=== PATIENT | female | born 1960 | race Caucasian/White ===

== ENCOUNTER 2017-08-10 12:06 | Observation (INO) | payer BC ==
--- NOTE | 2017-08-10 12:39 | ED ---
General Adult HPI - General Chief complaint: Neuro Symptoms/Deficit Stated complaint: Right Eye/Eyebrow drooping Time Seen by Provider: 08/10/17 12:24 Source: patient, family, RN notes reviewed Mode of arrival: ambulatory Limitations: no limitations - History of Present Illness Initial comments: Patient is a pleasant 57-year-old female presenting to the emergency department with concerns for right eyelid drooping. Onset of symptoms was just a couple hours ago. Patient has had approximately 3 episodes now. Episodes usually just lasts a couple of minutes. Patient states it is just the right eyelid, and maybe a little bit of the eyebrow. Patient states symptoms then resolved. Patient has not noticed any other facial weakness. Patient denies any headache. No other areas of weakness. No confusion or speech problems. No history of similar symptoms previously. - Related Data Home Medications Medication Instructions Recorded Confirmed Levothyroxine Sodium [Synthroid] 62.5 mcg PO TUTHSA 08/10/17 08/10/17 Levothyroxine Sodium [Synthroid] 75 mcg PO SUMOWEFR 08/10/17 08/10/17 Allergies Allergy/AdvReac Type Severity Reaction Status Date / Time azithromycin AdvReac Nausea Verified 08/10/17 12:44 [From Zithromax Z-Marin] metoclopramide [From Reglan] AdvReac Hallucinati Verified 08/10/17 12:44 ons Review of Systems ROS Statement: Those systems with pertinent positive or pertinent negative responses have been documented in the HPI. ROS Other: All systems not noted in ROS Statement are negative. Constitutional: Denies: fever Eyes: Denies: eye pain, vision change ENT: Denies: ear pain Respiratory: Denies: dyspnea Cardiovascular: Denies: chest pain Endocrine: Denies: fatigue Gastrointestinal: Denies: abdominal pain Genitourinary: Denies: dysuria Musculoskeletal: Denies: back pain Skin: Denies: rash Neurological: Denies: headache, numbness, paresthesias, confusion Past Medical History Past Medical History: Thyroid Disorder History of Any Multi-Drug Resistant Organisms: None Reported Past Surgical History: Cholecystectomy Past Psychological History: No Psychological Hx Reported Smoking Status: Former smoker Past Alcohol Use History: None Reported Past Drug Use History: None Reported General Exam Limitations: no limitations General appearance: alert, in no apparent distress Head exam: Present: atraumatic Eye exam: Present: normal appearance, PERRL, EOMI. Absent: nystagmus ENT exam: Present: normal oropharynx Neck exam: Present: normal inspection Respiratory exam: Present: normal lung sounds bilaterally Cardiovascular Exam: Present: regular rate, normal rhythm Expanded Peripheral pulses: 2+: Radial (R), Radial (L) GI/Abdominal exam: Present: soft. Absent: tenderness Extremities exam: Present: normal inspection Neurological exam: Present: alert, oriented X3, CN II-XII intact. Absent: motor sensory deficit Expanded Neurological exam: Present: protecting the airway Speech: Present: fluid speech Cranial nerves: EOM's Intact: Normal, Facial Sensation: Normal Cerebellar function: Finger to Nose: Normal Sensory exam: Upper Extremity Light Touch: Normal, Lower Extremity Light Touch: Normal Motor strength exam: RUE: 5, LUE: 5, RLE: 5, LLE: 5 Eye Response: (4) open spontaneously Motor Response: (6) obeys commands Verbal Response: (5) oriented Psychiatric exam: Present: normal affect, normal mood Skin exam: Present: normal color Course Vital Signs 08/10/17 08/10/17 12:11 14:32 Temperature 98.9 F Pulse Rate 74 70 Respiratory 18 18 Rate Blood Pressure 175/86 173/81 O2 Sat by Pulse 96 99 Oximetry Medical Decision Making - Medical Decision Making Patient reevaluated and resting comfortably in bed. Patient and family updated on results and plan. Case was discussed in detail with practitioner Jorge, who will admit for Dr. Sawyer, covering for Dr. Dia. Cause of symptoms is not known completely at this time. There is concern for possible TIA. Exclude also be possible early myasthenia gravis or other. Patient is felt to be best benefited by neurology consultation. - Radiology Data Radiology results: report reviewed (Computed tomography scan of the brain reveals no acute process) Disposition Clinical Impression: Transient cerebral ischemia Disposition: ADMITTED IP TO THIS [facility] Referrals: Brenda Dia MD [Primary Care Provider] - 1-2 days Decision Time: 14:40
--- NOTE | 2017-08-10 13:08 | CT ---
EXAMINATION TYPE: CT brain wo con DATE OF EXAM: 08/10/2017 COMPARISON: NONE HISTORY: Rt eye drooping CT DLP: 1054.2 mGycm. Automated Exposure Control for Dose Reduction was Utilized. TECHNIQUE: CT scan of the head is performed without contrast. FINDINGS: There is no acute intracranial hemorrhage, mass effect, or midline shift identified. No s uspicious extra axial fluid collection. The ventricles and sulci are within normal limits in size. The globes are intact and the visualized sinuses are clear. Right-sided enrrique bullosa are noted. IMPRESSION: No acute intracranial hemorrhage, mass effect, or midline shift is seen. Considering the patient's symptoms MRI could be considered.
[2017-08-10] MEDS ORDERED: ASPIRIN 325 MG TAB PO STA (14:40)
[2017-08-10 15:39] LABS: HCT 41.6 % (34.0-46.0); HGB 14.5 gm/dL (11.4-16.0); MCH 29.9 pg (25.0-35.0); MCHC 34.9 g/dL (31.0-37.0); MCV 85.6 fL (80.0-100.0); Mean Platelet Volume 6.6; Platelet Count 287 k/uL (150-450); RBC 4.86 m/uL (3.80-5.40); RDW 12.4 % (11.5-15.5); WBC 7.6 k/uL (3.8-10.6)
--- NOTE | 2017-08-10 15:44 | US ---
EXAMINATION TYPE: US carotid duplex BILAT DATE OF EXAM: 08/10/2017 COMPARISON: NONE CLINICAL HISTORY: Stenosis. Right eyelid drooping EXAM MEASUREMENTS: RIGHT: Peak Systolic Velocity (PSV) cm/sec ----- Right CCA: 60.0 ----- Right ICA: 92.0 ----- Right ECA: 101.3 ICA/CCA ratio: 1.5 RIGHT: End Diastole cm/sec ----- Right CCA: 20.4 ----- Right ICA: 33.7 ----- Right ECA: 13.3 LEFT: Peak Systolic Velocity (PSV) cm/sec ----- Left CCA: 81.5 ----- Left ICA: 71.6 ----- Left ECA: 56.6 ICA/CCA ratio: 0.9 LEFT: End Diastole cm/sec ----- Left CCA: 19.3 ----- Left ICA: 27.5 ----- Left ECA: 7.1 VERTEBRALS (direction of flow): Right Vertebral: Antegrade Left Vertebral: Antegrade Rhythm: Normal No elevated velocities, no significant stenosis. IMPRESSION: No evidence for hemodynamically significant stenosis. Criteria for Assigning % of Stenosis / Diameter reduction (Estimation based on the indirect measurements of the internal carotid artery velocities (ICA PSV). 1. Normal (no stenosis)=ICA PSV < 125 cm/s: ratio < 2.0: ICA EDV<40 cm/s. 2. Less than 50% stenosis=ICA PSV < 125 cm/s: ratio < 2.0: ICA EDV<40 cm/s. 3. 50 to 69% stenosis=ICA PSV of 125 to 230 cm/s: ration 2.0 ? 4.0: ICA EDV 40-100 cm/s. 4. Greater than 70% stenosis to near occlusion= ICA PSV > 230 cm/s: ratio > 4.0: ICA EDV > 100 cm/s. 5. Near occlusion= ICA PSV velocities may be low or undetectable: variable ratio and ICA EDV. 6. Total occlusion=unable to detect flow.
[2017-08-10] MEDS: SODIUM CHLORIDE 0.9% 1,000 ML IV SCH (15:47)
[2017-08-10 15:54] LABS: ALT 57 U/L (9-52); AST 55 U/L (14-36); Albumin 4.6 g/dL (3.5-5.0); Alkaline Phosphatase 70 U/L (38-126); Anion Gap 12 mmol/L; Blood Urea Nitrogen 13 mg/dL (7-17); Calcium 10.2 mg/dL (8.4-10.2); Carbon Dioxide 25 mmol/L (22-30); Chloride 105 mmol/L (98-107); Glucose 99 mg/dL (74-99); Potassium 4.5 mmol/L (3.5-5.1); Sodium 142 mmol/L (137-145); Total Bilirubin 0.7 mg/dL (0.2-1.3); Total Protein 7.9 g/dL (6.3-8.2)
[2017-08-10 17:16] VITALS: RESP 18
[2017-08-10] MEDS ORDERED: TEMAZEPAM 15 MG CAP PO PRN (18:05)
[2017-08-10] MEDS ORDERED: LEVOTHYROXINE 75 MCG TAB PO SCH (18:15)
[2017-08-10] MEDS: HEPARIN SODIUM,PORCINE 5,000 UNIT/ML 1 ML VIAL SQ SCH (20:08)
--- NOTE | 2017-08-10 20:19 | ECHOF ---
Referral Reason:Thrombus MEASUREMENTS -------- HEIGHT: 160.0 cm WEIGHT: 76.2 kg BP: 173/81 RVIDd: 2.5 cm (< 3.3) IVSd: 1.1 cm (0.6 - 1.1) LVIDd: 4.0 cm (3.9 - 5.3) LVPWd: 1.2 cm (0.6 - 1.1) IVSs: 1.4 cm LVIDs: 2.8 cm LVPWs: 1.3 cm LAESV Index (A-L): 11.51 ml/m Ao Diam: 2.4 cm (2.0 - 3.7) AV Cusp: 1.6 cm (1.5 - 2.6) LA Diam: 2.9 cm (2.7 - 3.8) EPSS: 0.4 cm MV E Jerel: 0.78 m/s MV DecT: 311 ms MV A Jerel: 0.84 m/s MV E/A Ratio: 0.93 RAP: 5.00 mmHg RVSP: 8.73 mmHg MV EF SLOPE: 78.33 mm/s (70 - 150) MV EXCURSION: 1.49 cm (> 18.000) FINDINGS -------- Sinus rhythm. This was a technically adequate study. The left ventricular size is normal. There is borderline concentric left ventricular hypertrophy. Overall left ventricular systolic function is normal with, an EF between 55 - 60 %. The right ventricle is normal in size and function. Normal LA size by volume 22+/-6 ml/m2. The right atrium is normal in size. The aortic valve is trileaflet, and appears structurally normal. No aortic stenosis or regurgitation. The mitral valve leaflets are mildly thickened. There is trace to mild mitral regurgitation. Trace tricuspid regurgitation present. Right ventricular systolic pressure is normal at < 35 mmHg. There is no evidence of pulmonary hypertension. The pulmonic valve was not well visualized. The aortic root size is normal. Normal inferior vena cava with normal inspiratory collapse consistent with estimated right atrial pre ssure of 5 mmHg. Echo free space indicative of a pericardial fat pad. There is no pericardial effusion. CONCLUSIONS -------- 1. Sinus rhythm. 2. This was a technically adequate study. 3. The left ventricular size is normal. 4. There is borderline concentric left ventricular hypertrophy. 5. Overall left ventricular systolic function is normal with, an EF between 55 - 60 %. 6. Normal LA size by volume 22+/-6 ml/m2. 7. The aortic valve is trileaflet, and appears structurally normal. No aortic stenosis or regurgitati on. 8. The mitral valve leaflets are mildly thickened. 9. There is trace to mild mitral regurgitation. 10. Trace tricuspid regurgitation present. 11. Right ventricular systolic pressure is normal at < 35 mmHg. 12. There is no evidence of pulmonary hypertension. 13. The pulmonic valve was not well visualized. 14. The aortic root size is normal. 15. There is no pericardial effusion. PRODUCTION CONTROL COORDINATING CLERK: Axel Turner RDCS
[2017-08-10] MEDS ORDERED: MELATONIN 3 MG TABLET PO SCH (21:00)
[2017-08-11 00:46] LABS: Appearance,Urine Clear (Clear); Bilirubin,Urine Negative (Negative); Blood,Urine Negative (Negative); Color,Urine Yellow; Glucose,Urine (UA) Negative (Negative); Ketones,Urine Negative (Negative); Leukocyte Esterase,Urine Negative (Negative); Nitrite,Urine Negative (Negative); Protein,Urine Negative (Negative); Specific Gravity,Urine 1.015 (1.001-1.035); Urobilinogen,Urine <2.0 mg/dL (<2.0)
[2017-08-11] MEDS: SODIUM CHLORIDE 0.9% 1,000 ML IV SCH ×2 (01:39→18:07)
[2017-08-11 06:08] LABS: Basophils # (A) 0.1 k/uL (0-0.2); Basophils % (A) 1 %; Eosinophils # (A) 0.2 k/uL (0-0.7); Eosinophils % (A) 4 %; HCT 39.8 % (34.0-46.0); HGB 13.6 gm/dL (11.4-16.0); Lymphocytes # (A) 2.1 k/uL (1.0-4.8); Lymphocytes % (A) 35 %; MCH 29.6 pg (25.0-35.0); MCHC 34.1 g/dL (31.0-37.0); MCV 86.9 fL (80.0-100.0); Mean Platelet Volume 6.6; Monocytes # (A) 0.3 k/uL (0-1.0); Monocytes % (A) 5 %; Neutrophils # (A) 3.1 k/uL (1.3-7.7); Neutrophils % (A) 53 %; Platelet Count 247 k/uL (150-450); RBC 4.58 m/uL (3.80-5.40); RDW 12.6 % (11.5-15.5); WBC 5.9 k/uL (3.8-10.6)
[2017-08-11 06:19] LABS: ALT 54 U/L (9-52); AST 35 U/L (14-36); Albumin 3.8 g/dL (3.5-5.0); Alkaline Phosphatase 64 U/L (38-126); Anion Gap 9 mmol/L; Blood Urea Nitrogen 13 mg/dL (7-17); Calcium 9.3 mg/dL (8.4-10.2); Carbon Dioxide 27 mmol/L (22-30); Chloride 106 mmol/L (98-107); Cholesterol 248 mg/dL (<200); Glucose 101 mg/dL (74-99); HDL Cholesterol 45 mg/dL (40-60); LDL Cholesterol,Calculated 157 mg/dL (0-99); Potassium 4.1 mmol/L (3.5-5.1); Sodium 142 mmol/L (137-145); Total Bilirubin 0.5 mg/dL (0.2-1.3); Total Protein 6.6 g/dL (6.3-8.2); Triglycerides 231 mg/dL (<150)
[2017-08-11] MEDS ORDERED: LEVOTHYROXINE 25 MCG TAB PO SCH (06:30)
--- NOTE | 2017-08-11 07:26 | HP ---
HISTORY AND PHYSICAL CHIEF COMPLAINTS: Drooping of the right eyelid. HISTORY OF PRESENT ILLNESS: This 57-year-old woman with a past medical history of multiple medical problems including history of hypertension, hypothyroidism, history of Graves ophthalmopathy in remission, history of cholecystectomy being followed by Dr. Dia in the outpatient setting, is complaining of right eye drooping. The patient felt the right drooping periodically, lasting for 10 minutes about at least 3 episodes. There is no history any headache. No history of fever, rigors. No headache. No history of seizures. No history weakness. The patient came to [facility] and was admitted for further evaluation and treatment. The neurology consultation is underway. Initial CT scan of the brain showed no acute abnormality. MRI has been recommended and carotid Doppler was done which showed no evidence of any hemodynamic stenosis and 2D echo with Doppler showed ejection fraction 50-60%. There is no history of fever, rigors. No headache, loss of consciousness, seizures. PAST MEDICAL HISTORY: History of hypertension, hypothyroidism, history of Graves ophthalmopathy, cholecystectomy. MEDICATIONS: Prior to admission: Synthroid 75 mcg p.o. Sunday, Sunday, Sunday and 62.5 mg Sunday, and Sunday. ALLERGIES: ZITHROMAX and REGLAN. FAMILY HISTORY: History of cancer in the family. SOCIAL HISTORY: Previous history of smoking. No history of alcohol intake. REVIEW OF SYSTEMS: ENT: As mentioned earlier. CARDIOVASCULAR: No angina. RESPIRATORY: No cough. GI: No nausea. : No dysuria. NERVOUS SYSTEM: As mentioned earlier. ALLERGIES/IMMUNOLOGY: No asthma. MUSCULOSKELETAL: Degenerative joint disease. ENDOCRINE: As mentioned earlier. CONSTITUTIONAL: As mentioned earlier. DERMATOLOGY: Negative. RHEUMATOLOGY: Negative. PSYCHIATRY: As mentioned earlier. PHYSICAL EXAMINATION: Alert, oriented x3. Pulse 64, blood pressure is 135/67, respiration 18, temperature 97.1, pulse ox 98% on room air. HEENT: Conjunctivae normal. Oral mucosa moist. Neck is no jugular venous distention. No carotid bruit. No lymph node enlargement. CARDIOVASCULAR: S1, S2. RESPIRATORY: Breath sounds diminished in the bases. No rhonchi, no crackles. ABDOMEN: Soft, nontender. No mass palpable. LEGS: No edema. NERVOUS SYSTEM: Higher function as mentioned, normal. Cranial nerves 2 through 12 grossly intact. No facial deviation. No eye drooping at this time. Pupils are normal, eye movements in full direction. No nystagmus. Moves all 4 limbs. No focal motor or sensory deficits. No sensory cerebellar dysfunction. SKIN: No ulcer, rash, bleeding. LYMPHATIC: No lymphadenopathy in the neck, axillae, groin.. JOINTS: No active deforming arthropathy. LAB: CBC within normal limits. AST 55, ALT 57. ASSESSMENT: 1. Drooping of the right eye, possible transient ischemic attack. 2. Increased AST, ALT, possibly acute mild hepatitis. 3. Hypertension. 4. Hypothyroidism. 5. History of Graves ophthalmopathy. 6. History of cholecystectomy. RECOMMENDATIONS AND DISCUSSION: This 57-year-old woman who presented with multiple complex medical issues, at this time I recommend continue the current medication, continue symptomatic treatment. Resume home medications. Antiplatelet agents. DVT prophylaxis. Otherwise I would recommend check a lipid panel. Neurology consultation. I would also recommend a MRI of the head also with contrast as well. We will continue to monitor. Prognosis guarded because of multiple complex medical issues. Copy of dictation forwarded to Dr. Dia who is the primary physician. MMODL / IJN: [id number] /
[2017-08-11] MEDS ORDERED: PANTOPRAZOLE 40 MG TABLET PO SCH (07:30)
[2017-08-11] MEDS: HEPARIN SODIUM,PORCINE 5,000 UNIT/ML 1 ML VIAL SQ SCH (08:55)
[2017-08-11] MEDS ORDERED: ASPIRIN 325 MG TAB PO SCH (12:00)
--- NOTE | 2017-08-11 15:01 | MR ---
EXAMINATION TYPE: MR angio head wo con DATE OF EXAM: 08/11/2017 COMPARISON: NONE HISTORY: Right eyelid drooping TECHNIQUE: Utilizing 3-D [id number] intracranial MRA of the [place] was performed. FINDINGS: The vertebrobasilar and carotid systems are patent. There is no sizable aneurysm or vascular malform ation. Left vertebral artery is dominant. Right vertebral artery appears congenitally diminutive. IMPRESSION: 1. No evidence of vascular malformation or sizable aneurysm.
--- NOTE | 2017-08-11 15:09 | MR ---
EXAMINATION TYPE: MR brain wo/w con DATE OF EXAM: 08/11/2017 COMPARISON: NONE HISTORY: Right eyelid drooping TECHNIQUE: Multiplanar, multisequence images of the brain and brainstem is performed without and with IV contras t, utilizing 5 mL intravenous Gadavist . FINDINGS: Diffusion weighted images demonstrate no evidence of a recent infarct or other diffusion ab normality. There are one or 2 punctate areas of abnormal signal within the white matter which are qu estionable significance. The ventricular system and cisternal spaces are normal in size and appearance. The brain volume is a ge appropriate. Midline structures demonstrate normal morphology. The craniocervical junction appears within normal limits. Post contrast images demonstrate no abnormal enhancement. The dural venous sinuses appear pa tent. The visualized sinuses are clear and the globes are intact. IMPRESSION: 1. No acute process. There are a couple tiny punctate areas of abnormal signal in the white matter wh ich is nonspecific and of questionable significance. Correlate clinically.
[2017-08-11] MEDS ORDERED: EZETIMIBE 10 MG TAB PO SCH (16:15)
[2017-08-11 17:45] VITALS: BP 127/66; PULSE 66; TEMP 97.5
--- NOTE | 2017-08-11 19:35 | DS ---
DISCHARGE SUMMARY FINAL DIAGNOSES: 1. Drooping of the right eyelid, possible transient ischemic attack. 2. Increased AST, ALT, possibly mild acute hepatitis. 3. Hypertension. 4. Hypothyroidism. 5. Hyperlipidemia. 6. History of Graves ophthalmopathy. 7. History of cholecystectomy. DISCHARGE CONDITION: The patient will be discharged in stable condition with guarded prognosis. HISTORY OF PRESENT ILLNESS: This 57-year-old woman with a past medical history of multiple medical problems, being followed by Dr. Dia in the outpatient setting, was admitted with drooping of the right eyelid. The patient was nonfocal and the patient was monitored closely. Neurovascular workup was basically negative. Patient discharged in stable condition. Guarded prognosis. Neurology saw the patient. The patient was also hyperlipidemic. The patient would like to follow up with Dr. Dia to decide on the treatment because the patient was unable to tolerate some other medication previously. On exam, vitals are stable. Cardiovascular S1 and S2. Abdomen soft. Nervous system, no focal deficits. DISCHARGE INSTRUCTIONS: 1. Diet is cardiac, low fat. 2. Activity limited. 3. Follow up with Dr. Dia. 4. Follow up with neurology as advised. MEDICATIONS: 1. Ecotrin 81 mg daily. 2. Zetia 10 mg p.o. daily. 3. Synthroid 62.5 mg and 75 mg as before. Once again, the patient will be discharged in stable condition with guarded prognosis. MMODL / IJN: [id number] /
[2017-08-11] MEDS ORDERED: ATORVASTATIN 20 MG TAB PO SCH (21:00)
--- NOTE | 2017-08-15 07:12 | P.CNNES ---
History of Present Illness Consult date: 08/11/17 Requesting physician: Herson Ugarte Chief complaint: TIA History of Present Illness: Neurology is consulting on a 57 year old male presenting the ED for right eyelid droop. Onset was 2-3 hours prior to arrival. Episodes are transient and last secs to minutes. Areas affected only include right lid and eye brow. Symptoms then resolved. Patient denies, headache, recent infection, antibiotic use, antiviral use, history of trigeminal neuralgia or bells palsy. No other neurological symptoms were observed. Patient was AOx4 on contact ambulating the hallway requesting to leave and sign out. Review of Systems All systems not noted in HPI are negative. Past Medical History Past Medical History: Hypertension, Thyroid Disorder Additional Past Medical History / Comment(s): Medication induced grave's opthalmopathy in remission. History of Any Multi-Drug Resistant Organisms: None Reported Past Surgical History: Cholecystectomy Additional Past Surgical History / Comment(s): colonoscopy Past Anesthesia/Blood Transfusion Reactions: No Reported Reaction Past Psychological History: No Psychological Hx Reported Additional Psychological History / Comment(s): Pt resides with her spouse and their son and his family. She is independent. Smoking Status: Former smoker Past Alcohol Use History: None Reported Additional Past Alcohol Use History / Comment(s): Pt started smoking in 1975 and quit in 1987 Past Drug Use History: None Reported - Past Family History Father Family Medical History: Cancer Additional Family Medical History / Comment(s): Father of lung cancer at the age of 63 yrs. Mother Family Medical History: Cancer Additional Family Medical History / Comment(s): Mother of brain cancer at the age of 49yrs. Medications and Allergies Home Medications Medication Instructions Recorded Confirmed Type Levothyroxine Sodium [Synthroid] 62.5 mcg PO TUTHSA 08/10/17 08/10/17 History Levothyroxine Sodium [Synthroid] 75 mcg PO SUMOWEFR 08/10/17 08/10/17 History Aspirin EC [Ecotrin Low Dose] 81 mg PO DAILY #30 tablet. 08/11/17 Rx Ezetimibe [Zetia] 10 mg PO DAILY #30 tab 08/11/17 Rx Allergies Allergy/AdvReac Type Severity Reaction Status Date / Time azithromycin AdvReac Nausea Verified 08/10/17 12:44 [From Zithromax Z-Marin] metoclopramide [From Reglan] AdvReac Hallucinati Verified 08/10/17 12:44 ons Physical Examination General appearance: Alert & oriented x4, no apparent distress. Head: Atraumatic, normocephalic, normal inspection Eyes: Well appearance, PERRLA, EOMI. Absent scleral icterus, conjunctival injection, nystagmus, periorbital swelling. Ear, nose and throat: Normal exam, mucous membranes moist Neck: Normal inspection, absent tenderness, lymphadenopathy. Respiratory: No increased work of breathing Cardiovascular: Regular rate, rhythm GI/abdominal: Normal bowel sounds, nondistended, no tenderness, no guarding, no rebound, no rigidity. Extremities: All range of motion, normal capillary refill, no tenderness, pedal edema joint swelling, calf tenderness. Neurological: cranial nerves II through XII intact no lateralizing weakness no seizure activity noted on physical exam no pronator drift and no nystagmus. Left lower extremity: 5/5 Right lower extremity:5 /5 Left upper extremity: 5/5 Right upper extremity: 5/5 Sensation: normal patient imitation during physical exam the descrption of the nerve affected maybe CN V: V1 & V2 Psychological: Mood and affect appropriate for setting. Results CT brain: Negative MRI brain: Negative Carotid Doppler: No hemodynamically significant stenosis MRA: no evidence of vascular malformation or aneurysm - Laboratory Findings CBC and BMP: 08/11/17 05:42 08/11/17 05:42 Abnormal Lab Findings: Abnormal Labs 08/10/17 08/11/17 15:24 05:42 Glucose 101 H AST 55 H ALT 57 H 54 H Triglycerides 231 H Cholesterol 248 H LDL Cholesterol, Calc 157 H Assessment and Plan (1) Transient cerebral ischemia Status: Acute Code(s): G45.9 - TRANSIENT CEREBRAL ISCHEMIC ATTACK, UNSPECIFIED SNOMED Code(s): 271921823 Plan: 1. TIA The patient appears to have suffered a TIA as the symptoms have ceased at time of PE. Patient no longer had any residual symptoms. Full imaging workup was negative as noted previously. Patients lipid panel was abnormal and lipitor was recommend. The patient declined lipitor dt myalgias. Precribed zetia 10mg, po, qday and 81 mg aspirin for hospital and home at discharge. If symptoms return further investigation for possible trigeminal neuralgia vs TIA. status: Cleared for discharge I have discussed the plan of care with the physician prior to implementation and he agrees with the plan as implemented. Charting delayed dt IT related problems.
== END 2017-08-11 18:23 | disposition home or self-care (01) ==
LOC: EC 12:06 → 6SEL 14:40
PROVIDERS: ADMIT Hospitalist; ATTEND Hospitalist
DX: H02.401 Unspecified ptosis of right eyelid (principal); R74.0 Nonspecific elevation of levels of transaminase and lactic acid dehydrogenase [LDH]; E03.9 Hypothyroidism, unspecified; E78.5 Hyperlipidemia, unspecified; I10 Essential (primary) hypertension; Z90.49 Acquired absence of other specified parts of digestive tract; Z79.899 Other long term (current) drug therapy; Z88.1 Allergy status to other antibiotic agents; Z88.8 Allergy status to other drugs, medicaments and biological substances; Z87.891 Personal history of nicotine dependence; Z86.39 Personal history of other endocrine, nutritional and metabolic disease; Z80.1 Family history of malignant neoplasm of trachea, bronchus and lung; Z80.8 Family history of malignant neoplasm of other organs or systems
CPT/HCPCS: 99285 ×2; 96360 ×2; 96372; 93306; 97161; 80061; 80053 ×2; 84443; 85025; 85027; 81003; 93880; 70450; 70544; 70553; G0378 ×2; J1644; A9581

== ENCOUNTER 2017-12-04 19:36 | Emergency (ER) | payer BC ==
[2017-12-04 19:41] VITALS: RESP 18
[2017-12-04 20:24] LABS: Basophils % (A) 1 %; Eosinophils # (A) 0.3 k/uL (0-0.7); Eosinophils % (A) 4 %; HCT 43.2 % (34.0-46.0); HGB 14.5 gm/dL (11.4-16.0); Lymphocytes # (A) 2.3 k/uL (1.0-4.8); Lymphocytes % (A) 29 %; MCH 29.4 pg (25.0-35.0); MCHC 33.6 g/dL (31.0-37.0); MCV 87.5 fL (80.0-100.0); Mean Platelet Volume 6.7; Monocytes # (A) 0.4 k/uL (0-1.0); Monocytes % (A) 5 %; Neutrophils # (A) 4.8 k/uL (1.3-7.7); Neutrophils % (A) 61 %; Platelet Count 273 k/uL (150-450); RBC 4.94 m/uL (3.80-5.40); RDW 12.8 % (11.5-15.5); WBC 7.9 k/uL (3.8-10.6)
[2017-12-04 20:34] LABS: Anion Gap 13 mmol/L; Blood Urea Nitrogen 18 mg/dL (7-17); Calcium 9.9 mg/dL (8.4-10.2); Carbon Dioxide 24 mmol/L (22-30); Chloride 105 mmol/L (98-107); Glucose 116 mg/dL (74-99); Sodium 142 mmol/L (137-145)
--- NOTE | 2017-12-04 21:25 | XR ---
EXAMINATION: XR chest 2V DATE AND TIME: 12/04/2017 8:26 PM ORDERING PROVIDER: Nestor Muller DO CLINICAL INDICATION: Pain TECHNIQUE: PA and lateral COMPARISON: None. DESCRIPTION: The lungs are clear. The pleural spaces are negative. The cardiac silhouette is not enlarged. The mediastinal and pleural silhouettes are unremarkable. The skeletal structures are intact without focal findings. The soft tissues are unremarkable. IMPRESSION: NO ACUTE PROCESS.
--- NOTE | 2017-12-04 21:37 | ED ---
General Adult HPI - General Chief complaint: Arrhythmia/Palpitations Stated complaint: heart palpitations Source: patient Mode of arrival: ambulatory Limitations: no limitations - History of Present Illness Initial comments: Dictation was produced using [employer] dictation software. please excuse any grammatical, word or spelling errors. Chief Complaint: 57 year female past medical history of hypertension and hypothyroidism presents with palpitations. History of Present Illness: She had a 10 minute long episode of palpitations. She was riding her motorcycle with her on a different motorcycle. She got off in began experiencing palpitations. Patient has been struggling with palpitations that she was told was secondary to her thyroid disease. She reports that she has had frequent palpitation episodes over the past several months. She came to the emergency department because her palpitations lasted longer than usual. Currently patient is asymptomatic. Denies any constitutional symptoms. The ROS documented in this emergency department record has been reviewed and confirmed by me. Those systems with pertinent positive or negative responses have been documented in the HPI. All other systems are other negative and/or noncontributory. - Related Data Home Medications Medication Instructions Recorded Confirmed Levothyroxine Sodium [Synthroid] 62.5 mcg PO TUTHSA 08/10/17 12/04/17 Levothyroxine Sodium [Synthroid] 75 mcg PO SUMOWEFR 08/10/17 12/04/17 Aspirin EC [Ecotrin Low Dose] 81 mg PO DAILY PRN 12/04/17 12/04/17 Allergies Allergy/AdvReac Type Severity Reaction Status Date / Time azithromycin AdvReac Nausea Verified 12/04/17 20:49 [From Zithromax Z-Marin] metoclopramide [From Reglan] AdvReac Hallucinati Verified 12/04/17 20:49 ons Review of Systems ROS Statement: Those systems with pertinent positive or pertinent negative responses have been documented in the HPI. ROS Other: All systems not noted in ROS Statement are negative. Past Medical History Past Medical History: Hypertension, Thyroid Disorder Additional Past Medical History / Comment(s): Medication induced grave's opthalmopathy in remission. History of Any Multi-Drug Resistant Organisms: None Reported Past Surgical History: Cholecystectomy Additional Past Surgical History / Comment(s): colonoscopy Past Anesthesia/Blood Transfusion Reactions: No Reported Reaction Past Psychological History: No Psychological Hx Reported Smoking Status: Former smoker Past Alcohol Use History: None Reported Past Drug Use History: None Reported - Past Family History Father Family Medical History: Cancer Additional Family Medical History / Comment(s): Father of lung cancer at the age of 63 yrs. Mother Family Medical History: Cancer Additional Family Medical History / Comment(s): Mother of brain cancer at the age of 49yrs. General Exam - General Exam Comments Initial Comments: PHYSICAL EXAM: General Impression: Alert and oriented x3, not in acute distress HEENT: Normocephalic atraumatic, extra-ocular movements intact, pupils equal and reactive to light bilaterally, mucous membranes moist. Cardiovascular: Heart regular rate and rhythm, S1&S2 audible, no murmurs, rubs or gallops Chest: Lungs clear to auscultation bilaterally, no rhonchi, no wheeze, no rales Abdomen: Bowel sounds present, abdomen soft, non-tender, non-distended, no organomegaly Musculoskeletal: Pulses present and equal in all extremities, no peripheral edema Motor: Power 5/5 bilaterally, no focal deficits noted Neurological: CN II-XII grossly intact, no focal motor or sensory deficits noted Skin: Intact with no visualized rashes Psych: Normal affect and mood Limitations: no limitations Course Vital Signs 12/04/17 12/04/17 12/04/17 19:38 20:07 21:36 Temperature 97.9 F 98.0 F Pulse Rate 98 69 Pulse Rate [ 65 Bilateral Supine Radial] Respiratory 18 18 Rate Blood Pressure 165/107 157/75 O2 Sat by Pulse 98 97 Oximetry Medical Decision Making - Medical Decision Making ED course: 57-year-old female with past medical history of thyroid disease and hypertension presents with episode of palpitations today. Upon arrival are within acceptable limits. Patient's blood pressure is mildly elevated of 165/107. Laboratory evaluation obtained. CBC is unremarkable. Basic metabolic panel is unremarkable. Two-view chest x-ray showed no acute processes. [facility]ony care bedside ultrasound was performed without any signs of pericardial effusion. EKG was benign. At this point there is no clear source of patient's palpitations. Patient offered inpatient observation for further workup. She states she does have good follow-up with her primary care physician. She was also offered cardiology referral. She states that she'll follow-up with her primary care physician. Discussed with patient that she would likely benefit from outpatient echocardiogram and possible Holter monitoring. Patient is understandable and agreeable. She is told to return to the emergency Department with occurrence of symptoms and patient is satisfied with disposition and plan. EKG Interpretation: A 12 lead EKG was obtained. It was interpreted by myself and attending physician. There is a P wave before every QRS complex. Rate is 70. Rhythm is normal sinus rhythm, [place] interval 140, QRS 76, QTC 425. QT is not prolonged. No ST segment depression or elevation. Overall, this EKG is unremarkable - Lab Data Result diagrams: 12/04/17 20:05 12/04/17 20:05 Lab Results 12/04/17 12/04/17 Range/Units 20:05 20:05 WBC 7.9 (3.8-10.6) k/uL RBC 4.94 (3.80-5.40) m/uL Hgb 14.5 (11.4-16.0) gm/dL Hct 43.2 (34.0-46.0) % MCV 87.5 (80.0-100.0) fL MCH 29.4 (25.0-35.0) pg MCHC 33.6 (31.0-37.0) g/dL RDW 12.8 (11.5-15.5) % Plt Count 273 (150-450) k/uL Neutrophils % 61 % Lymphocytes % 29 % Monocytes % 5 % Eosinophils % 4 % Basophils % 1 % Neutrophils # 4.8 (1.3-7.7) k/uL Lymphocytes # 2.3 (1.0-4.8) k/uL Monocytes # 0.4 (0-1.0) k/uL Eosinophils # 0.3 (0-0.7) k/uL Basophils # 0.0 (0-0.2) k/uL Sodium 142 (137-145) mmol/L Potassium 4.0 (3.5-5.1) mmol/L Chloride 105 (98-107) mmol/L Carbon Dioxide 24 (22-30) mmol/L Anion Gap 13 mmol/L BUN 18 H (7-17) mg/dL Creatinine 0.63 (0.52-1.04) mg/dL Est GFR (CKD-EPI)AfAm >90 (>60 ml/min/1.73 sqM) Est GFR (CKD-EPI)NonAf >90 (>60 ml/min/1.73 sqM) Glucose 116 H (74-99) mg/dL Calcium 9.9 (8.4-10.2) mg/dL Magnesium 2.0 (1.6-2.3) mg/dL Disposition Clinical Impression: Heart palpitations Disposition: HOME SELF-CARE Condition: Fair Instructions: Palpitations (ED) Is patient prescribed a controlled substance at d/c from ED?: No Referrals: Brenda Dia MD [Primary Care Provider] - 1-2 days Decision Time: 21:37
[2017-12-04 21:41] VITALS: BP 157/75; PULSE 69; TEMP 98
== END 2017-12-04 21:48 | disposition home or self-care (01) ==
LOC: EC 19:36
DX: R00.2 Palpitations (principal); I10 Essential (primary) hypertension; E03.9 Hypothyroidism, unspecified; Z87.891 Personal history of nicotine dependence; Z79.899 Other long term (current) drug therapy; Z88.1 Allergy status to other antibiotic agents; Z88.8 Allergy status to other drugs, medicaments and biological substances
CPT/HCPCS: 36415; 71046; 80048; 83735; 85025; 93005; 99285

== ENCOUNTER → 2018-04-10 | Outpatient (CLI) | payer BC ==
--- NOTE | 2018-04-11 07:13 | US ---
EXAMINATION TYPE: US thyroid st tissue head/neck DATE OF EXAM: 04/10/2018 COMPARISON: NONE CLINICAL HISTORY: E01.0 THYROMEGALY. Dizziness after swallowing, difficulty swallowing GLAND SIZE: Right Lobe: 2.1 x 0.9 x 1.1 cm Overall Parenchyma: heterogenous Left Lobe: 2.7 x 0.8 x 0.7 cm Overall Parenchyma: heterogeneous Isthmus Thickness: 0.2 cm NODULES RIGHT: # of nodules measured on right: 0 LEFT: # of nodules measured on left: 0 ISTHMUS: # of nodules measured in the isthmus: 0 Bilateral neck scanned, normal appearing lymph nodes bilaterally IMPRESSION: Thyroid glandular heterogeneity which is nonspecific. No evidence for solid or cystic nodule.
== END ==
LOC: RADUSWWP 16:43
PROVIDERS: ATTEND Internal Medicine
DX: E01.0 Iodine-deficiency related diffuse (endemic) goiter (principal)
CPT/HCPCS: 76536

== ENCOUNTER → 2018-05-23 | Outpatient (CLI) | payer OTHER ==
--- NOTE | 2018-05-23 11:39 | FL ---
ESOPHOGRAM. HISTORY: Dysphagia Esophagram was performed per the air contrast technique. The patient swallowed barium and effervesce nt crystals without difficulty or delay. Esophageal peristalsis and motility appear to be within normal limits. There is no evidence for filling defect, mass or diverticulum. No hiatal hernia seen. Subsequently single contrast cervical esophagram was performed which fails demonstrate evidence for a spiration penetration or mass. There is hypertrophy of the cricopharyngeus musculature resulting in 5 0% luminal narrowing. 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
== END ==
LOC: RADFLWHC 10:43
DX: R13.10 Dysphagia, unspecified (principal)
CPT/HCPCS: 74220

== ENCOUNTER 2018-10-01 08:50 | Emergency (ER) | payer BC, OTHER ==
[2018-10-01 09:00] VITALS: BP 158/80; PULSE 67; RESP 20; TEMP 98.1
[2018-10-01] MEDS ORDERED: TOPICAL SKIN ADHESIVE 1 EACH AMP TOPICAL ONE (09:32)
[2018-10-01] MEDS ORDERED: SODIUM CHLORIDE 0.9% IRRIG 1,000 ML BTL IRRIGATION ONE (09:46)
--- NOTE | 2018-10-01 09:55 | ED ---
General Adult HPI - General Chief complaint: Wound/Laceration Stated complaint: Laceration Time Seen by Provider: 10/01/18 09:18 Source: patient, RN notes reviewed Mode of arrival: ambulatory Limitations: no limitations - History of Present Illness Initial comments: Patient is a 58-year-old female presented to the emergency room today with a chief complaint of laceration to the top of forehead. She states that she was walking outside of [place] and did not realize that the pop out portion was right in front of her cheek accidentally hit it with her head causing laceration. She states she had her hand on. She states she did not lose consciousness. States not on any blood thinners. Patient denies any other complaints or symptoms. She states tetanus is up-to-date. - Related Data Home Medications Medication Instructions Recorded Confirmed Levothyroxine Sodium [Synthroid] 62.5 mcg PO SUTUTHSA 08/10/17 10/01/18 Levothyroxine Sodium [Synthroid] 75 mcg PO MOWEFR 08/10/17 10/01/18 Allergies Allergy/AdvReac Type Severity Reaction Status Date / Time azithromycin AdvReac Nausea Verified 10/01/18 09:12 [From Zithromax Z-Marin] metoclopramide [From Reglan] AdvReac Hallucinati Verified 10/01/18 09:12 ons Review of Systems ROS Statement: Those systems with pertinent positive or pertinent negative responses have been documented in the HPI. ROS Other: All systems not noted in ROS Statement are negative. Past Medical History Past Medical History: Hypertension, Thyroid Disorder Additional Past Medical History / Comment(s): Medication induced grave's opthalmopathy in remission. History of Any Multi-Drug Resistant Organisms: None Reported Past Surgical History: Cholecystectomy Additional Past Surgical History / Comment(s): colonoscopy Past Anesthesia/Blood Transfusion Reactions: No Reported Reaction Past Psychological History: No Psychological Hx Reported Smoking Status: Former smoker Past Alcohol Use History: None Reported Past Drug Use History: None Reported - Past Family History Father Family Medical History: Cancer Additional Family Medical History / Comment(s): Father of lung cancer at the age of 63 yrs. Mother Family Medical History: Cancer Additional Family Medical History / Comment(s): Mother of brain cancer at the age of 49yrs. General Exam - General Exam Comments Initial Comments: General: The patient is awake and alert, in no distress, and does not appear acutely ill. Eye: Pupils are equal, round and reactive to light, extra-ocular movements are intact. No nystagmus. There is normal conjunctiva bilaterally. No signs of icterus. Neck: The neck is supple, there is no tenderness or JVD. Musculoskeletal: Normal ROM, no tenderness. Strength 5/5. Sensation intact. Pulses equal bilaterally 2+. Neurological: A&O x 3. CN II-XII intact, There are no obvious motor or sensory deficits. Coordination appears grossly intact. Speech is normal. Skin: Patient does have a superficial L-shaped laceration to. Measures total of 2 cm in total length. No active bleeding. Psychiatric: Cooperative, appropriate mood & affect, normal judgment. Limitations: no limitations Course Vital Signs 10/01/18 08:57 Temperature 98.1 F Pulse Rate 67 Respiratory 20 Rate Blood Pressure 158/80 O2 Sat by Pulse 98 Oximetry Procedures - Procedures Initial comment: L-shaped laceration with total length 2 cm to the top of the forehead. Laceration was cleaned and irrigated with saline here in emergency room. Wound edges were approximated and closed with Dermabond. Patient tolerated procedure well. Disposition Clinical Impression: Laceration Disposition: HOME SELF-CARE Condition: Good Instructions (If sedation given, give patient instructions): Laceration (ED) Additional Instructions: Please allow him to follow-up over the next 3-5 days. Return here to emergency room if any symptoms increase or worsen or for any other concerns. Please return to emergency room if the symptoms increase or worsen or for any other concerns. Is patient prescribed a controlled substance at d/c from ED?: No Referrals: Brenda Dia MD [Primary Care Provider] - 1-2 days Time of Disposition: 09:55
== END 2018-10-01 10:09 | disposition home or self-care (01) ==
LOC: EC 08:50
DX: S01.81XA Laceration without foreign body of other part of head, initial encounter (principal); E07.9 Disorder of thyroid, unspecified; Z87.891 Personal history of nicotine dependence; Z88.1 Allergy status to other antibiotic agents; Z88.8 Allergy status to other drugs, medicaments and biological substances; Z79.890 Hormone replacement therapy; W22.8XXA Striking against or struck by other objects, initial encounter; Y93.01 Activity, walking, marching and hiking; Y92.008 Other place in unspecified non-institutional (private) residence as the place of occurrence of the external cause
CPT/HCPCS: 12011; 99282

== ENCOUNTER 2022-09-19 14:37 | Emergency (ER) | payer OTHER ==
[2022-09-19 14:46] VITALS: PULSE 78; TEMP 98.4
[2022-09-19] MEDS ORDERED: SODIUM CHLORIDE 0.9% 1,000 ML IV STA (15:20)
--- NOTE | 2022-09-19 15:21 | ED ---
Dizziness HPI - General Chief Complaint: Syncope Stated Complaint: VERTIGO Time Seen by Provider: 09/19/22 14:41 Source: patient, EMS, RN notes reviewed, old records reviewed Mode of arrival: EMS Limitations: no limitations - History of Present Illness Initial Comments: This is a 62 year-old female to the emergency department for evaluation patient presents today with palpitations or syncopal event travel. No headache chest pain shortness of breath or abdominal pain. History of arrhythmia and palpitations the past but no acute cause her diagnosis been made. Patient has recent diagnosis of diabetes starting on medication she believes this could be a cause. She is no travel history no other complications no sick contacts. No drugs or alcohol. MD Complaint: dizziness, lightheadedness, near syncope -: minutes(s) Timing: sudden onset Description: lightheadedness, near-syncope History of Same: Yes History of Trauma: No Improves With: nothing, rehydration Worsens With: nothing Associated Symptoms: other (Palpitations) - Related Data Home Medications Medication Instructions Recorded Confirmed Levothyroxine Sodium [Synthroid] 12.5 mcg PO SUTH 08/10/17 09/19/22 Levothyroxine Sodium [Synthroid] 75 mcg PO MOTUWEFRSA 08/10/17 09/19/22 Levothyroxine Sodium [Synthroid] 50 mcg PO SUTH 09/19/22 09/19/22 Semaglutide [Ozempic] 0.25 mg SQ SA 09/19/22 09/19/22 Allergies Allergy/AdvReac Type Severity Reaction Status Date / Time azithromycin AdvReac Nausea Verified 09/19/22 16:43 [From Zithromax Z-Marin] metoclopramide [From Reglan] AdvReac Hallucinati Verified 09/19/22 16:43 ons Review of Systems ROS Statement: Those systems with pertinent positive or pertinent negative responses have been documented in the HPI. ROS Other: All systems not noted in ROS Statement are negative. Past Medical History Past Medical History: Hypertension, Thyroid Disorder Additional Past Medical History / Comment(s): Medication induced grave's opthalmopathy in remission. History of Any Multi-Drug Resistant Organisms: None Reported Past Surgical History: Cholecystectomy Additional Past Surgical History / Comment(s): colonoscopy Past Anesthesia/Blood Transfusion Reactions: No Reported Reaction Past Psychological History: No Psychological Hx Reported, Anxiety Smoking Status: Former smoker Past Alcohol Use History: None Reported Past Drug Use History: None Reported - Past Family History Father Family Medical History: Cancer Additional Family Medical History / Comment(s): Father of lung cancer at the age of 63 yrs. Mother Family Medical History: Cancer Additional Family Medical History / Comment(s): Mother of brain cancer at the age of 49yrs. General Exam Limitations: no limitations General appearance: alert, in no apparent distress Head exam: Present: atraumatic, normocephalic, normal inspection Eye exam: Present: normal appearance, PERRL, EOMI. Absent: scleral icterus, conjunctival injection, periorbital swelling ENT exam: Present: normal exam, mucous membranes moist Neck exam: Present: normal inspection. Absent: tenderness, meningismus, lymphadenopathy Respiratory exam: Present: normal lung sounds bilaterally. Absent: respiratory distress, wheezes, rales, rhonchi, stridor Cardiovascular Exam: Present: regular rate, normal rhythm, normal heart sounds. Absent: systolic murmur, diastolic murmur, rubs, gallop, clicks GI/Abdominal exam: Present: soft, normal bowel sounds. Absent: distended, tenderness, guarding, rebound, rigid Extremities exam: Present: normal inspection, full ROM, normal capillary refill. Absent: tenderness, pedal edema, joint swelling, calf tenderness Back exam: Present: normal inspection Neurological exam: Present: alert, oriented X3, CN II-XII intact Psychiatric exam: Present: normal affect, normal mood Skin exam: Present: warm, dry, intact, normal color. Absent: rash Course Vital Signs 09/19/22 09/19/22 09/19/22 14:41 16:00 16:30 Temperature 98.4 F Pulse Rate 78 78 72 Respiratory 20 Rate Blood Pressure 191/107 142/81 161/86 O2 Sat by Pulse 98 Oximetry 09/19/22 09/19/22 09/19/22 17:00 17:30 17:57 Temperature Pulse Rate 74 65 78 Respiratory 18 Rate Blood Pressure 155/73 140/76 O2 Sat by Pulse 96 Oximetry - Reevaluation(s) Reevaluation #1: 09/19/22 18:59 Medical record is reviewed Reevaluation #2: 09/19/22 18:59 Patient remains a symptomatic throughout ER stay Reevaluation #3: 04/25/23 18:59 Patient informed results questions are answered Reevaluation #4: 09/19/22 18:59 Was pt. sent in by a medical professional or institution? @ -no Did you speak to anyone other than the patient for history? @ -no Did you review nursing and triage notes? @ -agree Were old charts reviewed? @ -no Differential Diagnosis? @ -syncope EKG interpreted by me (3pts min.)? @ -no X-rays interpreted by me (1pt min.)? @ -no CT interpreted by me (1pt min.)? @ -no U/S interpreted by me (1pt. min.)? @ -no What testing was considered but not performed? (CT, X-rays, U/S, labs)? Why? @ -no What meds were considered but not given? Why? @ -no Did you discuss the management of the patient with other professionals? @ -no Did you reconcile home meds? @ -no Was smoking cessation discussed for >3mins.? @ -no Was critical care preformed (if so, how long)? @ -no Were there social determinants of health that impacted care today? How? (Homelessness, low income, unemployed, alcoholism, drug addiction, transpor tation, low edu. Level, literacy, decrease access to med. care, correction, rehab)? @ -no Was there de-escalation of care discussed even if they declined? (Discuss DNR or withdrawal of care, Hospice)? @ -no What co-morbidities impacted this encounter? (DM, HTN, Smoking, COPD, CAD, Cancer, CVA,, sleep apnea, morbid obesity) @ -no Was patient admitted / discharged? @ -dc Undiagnosed new problem with uncertain prognosis? @ -no Drug Therapy requiring intensive monitoring for toxicity (Heparin, Nitro, Insulin, Cardizem)? @ -no Were any procedures done? @ -no Diagnosis/symptom? @ -arrhythmia, palpitations, neare syncope Acute, or Chronic, or Acute on Chronic? @ -acute Uncomplicated (without systemic symptoms) or Complicated (systemic symptoms)? @ -uncomplicated Side effects of treatment? @ -no Exacerbation, Progression, or Severe Exacerbation] @ -no Poses a threat to life or bodily function? @ -no Reevaluation #5: 09/19/22 18:59 Differential Syncope: Valvular disease, hypertrophic cardiomyopathy, pulmonary embolism, tamponade, tachycardia, bradycardia, MO, hypovolemia, hemorrhage, dissection, anemia, intracranial hemorrhage, seizure, hypoglycemia, carbon monoxide poisoning, this is not meant to be an all-inclusive list. EKG Findings - EKG Comments: EKG Findings:: EKG is sinus 75 [place] 159 QRS 97 QTc 45 - EKG Results: EKG: interpreted by MARIA ANTONIA Medical Decision Making - Medical Decision Making 62 female to the emergency department for evaluation patient Dese for evaluation regards to a near syncopal event while getting ready today. Patient thought she was given a pass out for lightheaded and dizzy all symptoms have all resolved remain resolved here in the ER. No cause found patient has had a monitor in the past which she said showed no arrhythmia. Again patient is without chest pain no headache chest pain shortness breath or abdominal pain at this time prefers discharge - Lab Data Result diagrams: 09/19/22 15:28 09/19/22 15:28 Lab Results 09/19/22 09/19/22 09/19/22 Range/Units 15:28 15:28 15:28 WBC 9.5 (3.8-10.6) k/uL RBC 4.62 (3.80-5.40) m/uL Hgb 14.0 (11.4-16.0) gm/dL Hct 40.6 (34.0-46.0) % MCV 87.9 (80.0-100.0) fL MCH 30.3 (25.0-35.0) pg MCHC 34.5 (31.0-37.0) g/dL RDW 13.2 (11.5-15.5) % Plt Count 262 (150-450) k/uL MPV 7.4 Neutrophils % 64 % Lymphocytes % 27 % Monocytes % 5 % Eosinophils % 2 % Basophils % 0 % Neutrophils # 6.0 (1.3-7.7) k/uL Lymphocytes # 2.6 (1.0-4.8) k/uL Monocytes # 0.5 (0-1.0) k/uL Eosinophils # 0.2 (0-0.7) k/uL Basophils # 0.0 (0-0.2) k/uL PT 9.7 (9.0-12.0) sec INR 0.9 (<1.2) APTT 22.1 (22.0-30.0) sec D-Dimer 0.40 (<0.60) mg/L FEU Sodium 139 (137-145) mmol/L Potassium 3.8 (3.5-5.1) mmol/L Chloride 108 H (98-107) mmol/L Carbon Dioxide 23 (22-30) mmol/L Anion Gap 8 mmol/L BUN 13 (7-17) mg/dL Creatinine 0.61 (0.52-1.04) mg/dL Est GFR (CKD-EPI)AfAm >90 (>60 ml/min/1.73 sqM) Est GFR (CKD-EPI)NonAf >90 (>60 ml/min/1.73 sqM) Glucose 121 H (74-99) mg/dL Calcium 8.9 (8.4-10.2) mg/dL Magnesium 2.1 (1.6-2.3) mg/dL Total Bilirubin 0.6 (0.2-1.3) mg/dL AST 34 (14-36) U/L ALT 35 H (4-34) U/L Alkaline Phosphatase 68 (38-126) U/L Troponin I (0.000-0.034) ng/mL Total Protein 7.3 (6.3-8.2) g/dL Albumin 4.2 (3.5-5.0) g/dL 09/19/22 Range/Units 15:28 WBC (3.8-10.6) k/uL RBC (3.80-5.40) m/uL Hgb (11.4-16.0) gm/dL Hct (34.0-46.0) % MCV (80.0-100.0) fL MCH (25.0-35.0) pg MCHC (31.0-37.0) g/dL RDW (11.5-15.5) % Plt Count (150-450) k/uL MPV Neutrophils % % Lymphocytes % % Monocytes % % Eosinophils % % Basophils % % Neutrophils # (1.3-7.7) k/uL Lymphocytes # (1.0-4.8) k/uL Monocytes # (0-1.0) k/uL Eosinophils # (0-0.7) k/uL Basophils # (0-0.2) k/uL PT (9.0-12.0) sec INR (<1.2) APTT (22.0-30.0) sec D-Dimer (<0.60) mg/L FEU Sodium (137-145) mmol/L Potassium (3.5-5.1) mmol/L Chloride (98-107) mmol/L Carbon Dioxide (22-30) mmol/L Anion Gap mmol/L BUN (7-17) mg/dL Creatinine (0.52-1.04) mg/dL Est GFR (CKD-EPI)AfAm (>60 ml/min/1.73 sqM) Est GFR (CKD-EPI)NonAf (>60 ml/min/1.73 sqM) Glucose (74-99) mg/dL Calcium (8.4-10.2) mg/dL Magnesium (1.6-2.3) mg/dL Total Bilirubin (0.2-1.3) mg/dL AST (14-36) U/L ALT (4-34) U/L Alkaline Phosphatase (38-126) U/L Troponin I <0.012 (0.000-0.034) ng/mL Total Protein (6.3-8.2) g/dL Albumin (3.5-5.0) g/dL Disposition Clinical Impression: Near syncope, Palpitations Disposition: HOME SELF-CARE Condition: Good Instructions (If sedation given, give patient instructions): Heart Palpitations (ED), Near Syncope (ED) Is patient prescribed a controlled substance at d/c from ED?: No Referrals: Brenda Dia MD [Primary Care Provider] - 1-2 days Time of Disposition: 17:30
[2022-09-19 15:50] LABS: Basophils % (A) 0 %; Eosinophils # (A) 0.2 k/uL (0-0.7); Eosinophils % (A) 2 %; HCT 40.6 % (34.0-46.0); Lymphocytes # (A) 2.6 k/uL (1.0-4.8); Lymphocytes % (A) 27 %; MCH 30.3 pg (25.0-35.0); MCHC 34.5 g/dL (31.0-37.0); MCV 87.9 fL (80.0-100.0); Mean Platelet Volume 7.4; Monocytes # (A) 0.5 k/uL (0-1.0); Monocytes % (A) 5 %; Neutrophils % (A) 64 %; Platelet Count 262 k/uL (150-450); RBC 4.62 m/uL (3.80-5.40); RDW 13.2 % (11.5-15.5); WBC 9.5 k/uL (3.8-10.6)
[2022-09-19 16:10] LABS: ALT 35 U/L (4-34); AST 34 U/L (14-36); African American GFR (CKD) >90 (>60 ml/min/1.73 sqM); Albumin 4.2 g/dL (3.5-5.0); Alkaline Phosphatase 68 U/L (38-126); Anion Gap 8 mmol/L; Blood Urea Nitrogen 13 mg/dL (7-17); Calcium 8.9 mg/dL (8.4-10.2); Carbon Dioxide 23 mmol/L (22-30); Chloride 108 mmol/L (98-107); Glucose 121 mg/dL (74-99); Magnesium 2.1 mg/dL (1.6-2.3); Non-African American GFR(CKD) >90 (>60 ml/min/1.73 sqM); Potassium 3.8 mmol/L (3.5-5.1); Sodium 139 mmol/L (137-145); Total Bilirubin 0.6 mg/dL (0.2-1.3); Total Protein 7.3 g/dL (6.3-8.2)
[2022-09-19 16:28] LABS: INR 0.9 (<1.2); Partial Thromboplastin Time 22.1 sec (22.0-30.0); Prothrombin Time 9.7 sec (9.0-12.0)
[2022-09-19 17:59] VITALS: BP 140/76; RESP 18
== END 2022-09-19 17:59 | disposition home or self-care (01) ==
LOC: EC 14:37
DX: R55 Syncope and collapse (principal); R00.2 Palpitations; I10 Essential (primary) hypertension; E07.9 Disorder of thyroid, unspecified; Z87.891 Personal history of nicotine dependence; Z88.1 Allergy status to other antibiotic agents; Z88.8 Allergy status to other drugs, medicaments and biological substances; Z79.890 Hormone replacement therapy
CPT/HCPCS: 36415; 80053; 83735; 84484; 85025; 85379; 85610; 85730; 93005; 96360; 96361; 99284